=== PATIENT | female | born 1990 | race Caucasian/White ===

== ENCOUNTER 2022-11-19 09:33 | Inpatient (IN) | payer BC ==
[~2022-11-19 09:33] MED LIST: Acetaminophen 500 MG TAB PO PRN; Carboprost 250 MCG/ML AMP IM PRN; Diphenoxylate HCl/Atropine Tablet PO PRN; HYDROcodone/Acetaminophen 5/325 mg Tablet PO PRN; Ibuprofen 800 MG TAB PO PRN; Lidocaine 1% (PF) 30 ML VIAL SC PRN; Methylergonovine 0.2 MG/ML VIAL IM PRN; Misoprostol 200 MCG TAB PR PRN; NS w/ Oxytocin 30 units 500 ML IV SCH; Ondansetron PF 4 MG/2 ML Vial IVP PRN; Penicillin G Potassium 5 MILL.UNITS in Sodium Chloride 0.9% 100 ML IVPB SCH; Promethazine HCl 25 MG/ML VIAL IM PRN; fentaNYL 50 mcg/mL 1 mL Vial SLOW IVP PRN; hydrALAZINE 20 MG/ML VIAL SLOW IVP PRN
[2022-11-19] MEDS ORDERED: NS w/ Oxytocin 30 units 500 ML ONE (10:33)
[2022-11-19] MEDS ORDERED: Penicillin G Potassium 5 MILL.UNITS VIAL ONE (10:33)
[2022-11-19 10:53] LABS: Hemoglobin 10.9 g/dL (12.0-15.5); Mean Corpuscular HGB CONC 32.8 g/dL (32.0-36.0); Mean Corpuscular Hemoglobin 26.8 pg (27.0-33.0); Mean Corpuscular Volume 81.8 fl (81.6-98.3); Platelet Count 267 10x3/uL (150-450); Red Blood Cell (RBC) Count 4.06 10x6/uL (3.90-5.03); White Blood Cell (WBC) Count 12.1 10x3/uL (3.5-10.5)
[2022-11-19 11:25] LABS: HBSAg Index 0.18 S/CO (0-0.99); Hep B Surf Ag - L&D Non-Reactive S/CO (NonReactive); Syphilis Antibody Nonreactive (Nonreactive); Syphilis Antibody Index 0.04 S/CO (<1.00 Non-Reactive)
[2022-11-19] MEDS ORDERED: Moisturizing Cream (Eucerin) 113 GM JAR TOP PRN (12:48)
[2022-11-19] MEDS ORDERED: Naloxone HCl 0.4 mg/ml Vial IVP PRN ×2 (12:48)
[2022-11-19] MEDS ORDERED: ePHEDrine Sulfate 50 MG/10 ML VIAL SLOW IVP PRN (12:48)
[2022-11-19] MEDS ORDERED: Ondansetron PF 4 MG/2 ML Vial IVP PRN ×2 (12:48→19:38)
[2022-11-19] MEDS ORDERED: diphenhydrAMINE 50 MG/ML VIAL IVP PRN (12:48)
[2022-11-19] MEDS ORDERED: Acetaminophen 325 MG TAB PO PRN (12:48)
[2022-11-19] MEDS ORDERED: Lactated Ringer's 500 ML IV PRN (12:48)
[2022-11-19] MEDS ORDERED: fentaNYL/Ropivacaine Epidural 100 ML ONE (12:48)
[2022-11-19] MEDS ORDERED: Promethazine HCl 25 MG/ML VIAL IM PRN (12:48)
[2022-11-19] MEDS ORDERED: fentaNYL 2 mcg/Ropivacaine 0.2% Epidural 100 ML CADD EPIDURAL SCH (13:00)
[2022-11-19] MEDS ORDERED: Communication Order-Pharmacy FS SCH (13:00)
[2022-11-19 13:58] VITALS: BMI 31.5
[2022-11-19] MEDS: Lactated Ringer's 1,000 ML IV SCH ×2 (19:37→19:38)
[2022-11-19] MEDS ORDERED: Benzocaine-Menthol 82.5 ML CAN TOP PRN (19:38)
[2022-11-19] MEDS ORDERED: diphenhydrAMINE 25 MG CAP PO PRN (19:38)
[2022-11-19] MEDS ORDERED: hydrALAZINE 20 MG/ML VIAL SLOW IVP PRN (19:38)
[2022-11-19] MEDS ORDERED: Lanolin Ointment 7 GM TUBE TOP PRN (19:38)
[2022-11-19] MEDS: Penicillin G 2.5 MILL.units 2.5 MILL.UNITS in Premix Bag 1 BAG IVPB SCH (19:38)
[2022-11-19] MEDS ORDERED: Preparation H Ointment 28 GM TUBE PR PRN (19:38)
[2022-11-19] MEDS ORDERED: HYDROcodone/Acetaminophen 5/325 mg Tablet PO PRN (19:38)
[2022-11-19] MEDS ORDERED: Boostrix 0.5 ML (Tdap) VIAL (>/=7 yrs of age) IM ONE (19:38)
[2022-11-19] MEDS ORDERED: Bisacodyl 10 MG SUPP PR PRN (19:38)
[2022-11-19] MEDS ORDERED: Milk Of Magnesia 30 ML UDCUP PO PRN (19:38)
[2022-11-19] MEDS: Ibuprofen 800 MG TAB PO SCH (20:02)
[2022-11-19] MEDS: Docusate 100 MG CAP PO SCH (21:38)
[2022-11-20] MEDS: Ibuprofen 800 MG TAB PO SCH ×2 (03:43→13:13)
[2022-11-20] MEDS ORDERED: Prenatal Vitamin 1 TAB PO SCH (09:00)
[2022-11-20] MEDS: Ferrous Sulfate 325 MG TAB PO SCH ×2 (09:15→16:18)
[2022-11-20] MEDS: Docusate 100 MG CAP PO SCH ×2 (09:16→21:11)
[2022-11-20] MEDS: HYDROcodone/Acetaminophen 5/325 mg Tablet PO PRN ×2 (10:13→20:22)
[2022-11-20 20:36] VITALS: BP 119/71; TEMP 98.2
== END 2022-11-20 20:55 | disposition home or self-care (01) | DRG 807 ==
LOC: CSHLD 09:33 → CSHPP 20:38
PROVIDERS: ADMIT Student in an Organized Health Care Education/Training Program; ATTEND Student in an Organized Health Care Education/Training Program
PROC: 10E0XZZ Delivery of Products of Conception, External Approach (ICD-10-PCS; principal; 2022-11-19)
PROC: 10907ZC Drainage of Amniotic Fluid, Therapeutic from Products of Conception, Via Natural or Artificial Opening (ICD-10-PCS; 2022-11-19)
PROC: 0HQ9XZZ Repair Perineum Skin, External Approach (ICD-10-PCS; 2022-11-19)
DX: O99.824 Streptococcus B carrier state complicating childbirth (principal); Z37.0 Single live birth; Z3A.39 39 weeks gestation of pregnancy; O70.0 First degree perineal laceration during delivery
CPT/HCPCS: 36415; 51702; 85027; 86780; 86850; 86900; 86901; 87340; J2540; J2590